=== PATIENT | female | born 1940 | race Caucasian/White ===

== ENCOUNTER 2017-04-03 12:03 | Outpatient (CLI) | payer OTHER | END 2017-04-03 14:40 | disposition home or self-care (01) | LOC: RAD 12:03 | DX: M25.561 Pain in right knee (principal); M25.562 Pain in left knee ==

== ENCOUNTER → 2017-04-12 08:34 | Outpatient (CLI) | payer OTHER | END | disposition home or self-care (01) | LOC: LAB 08:34 | DX: D69.6 Thrombocytopenia, unspecified (principal); M32.8 Other forms of systemic lupus erythematosus; D59.1 Other autoimmune hemolytic anemias; D89.1 Cryoglobulinemia ==

== ENCOUNTER → 2017-04-15 07:32 | Outpatient (CLI) | payer OTHER | END | disposition home or self-care (01) | LOC: LAB 07:32 | DX: D69.6 Thrombocytopenia, unspecified (principal); M32.8 Other forms of systemic lupus erythematosus; D59.1 Other autoimmune hemolytic anemias; D89.1 Cryoglobulinemia; M05.879 Other rheumatoid arthritis with rheumatoid factor of unspecified ankle and foot ==

== ENCOUNTER → 2017-08-02 07:41 | Outpatient (CLI) | payer OTHER | END | disposition home or self-care (01) | LOC: LAB 07:41 | DX: D53.8 Other specified nutritional anemias (principal); I11.0 Hypertensive heart disease with heart failure; N39.0 Urinary tract infection, site not specified; E78.2 Mixed hyperlipidemia; E04.0 Nontoxic diffuse goiter; D20.0 Benign neoplasm of soft tissue of retroperitoneum; E83.52 Hypercalcemia ==

== ENCOUNTER → 2017-08-29 12:05 | Outpatient (CLI) | payer OTHER | END | disposition home or self-care (01) | LOC: LAB 12:05 | DX: N39.0 Urinary tract infection, site not specified (principal); R82.79 Other abnormal findings on microbiological examination of urine ==

== ENCOUNTER 2017-08-29 12:51 | Outpatient (CLI) | payer OTHER | END 2017-08-29 13:21 | disposition home or self-care (01) | LOC: MAMO-SONO 12:51 | DX: Z12.31 Encounter for screening mammogram for malignant neoplasm of breast (principal); Z87.898 Personal history of other specified conditions; N60.11 Diffuse cystic mastopathy of right breast; N60.12 Diffuse cystic mastopathy of left breast ==

== ENCOUNTER 2018-01-31 08:18 | Outpatient (CLI) | payer OTHER | END 2018-01-31 08:21 | disposition home or self-care (01) | LOC: LAB 08:18 | DX: I11.0 Hypertensive heart disease with heart failure (principal); N39.0 Urinary tract infection, site not specified; E04.0 Nontoxic diffuse goiter; E11.9 Type 2 diabetes mellitus without complications; E78.2 Mixed hyperlipidemia; R00.2 Palpitations; D53.8 Other specified nutritional anemias ==

== ENCOUNTER 2018-07-04 07:49 | Outpatient (CLI) | payer OTHER | END 2018-07-04 08:49 | disposition home or self-care (01) | LOC: LAB 07:49 | DX: I11.0 Hypertensive heart disease with heart failure (principal); D53.9 Nutritional anemia, unspecified; N39.0 Urinary tract infection, site not specified; E11.9 Type 2 diabetes mellitus without complications; E78.2 Mixed hyperlipidemia ==

== ENCOUNTER → 2018-07-29 12:06 | Outpatient (CLI) | payer OTHER | END | disposition home or self-care (01) | LOC: LAB 12:06 | DX: N39.0 Urinary tract infection, site not specified (principal) ==

== ENCOUNTER → 2018-07-29 | Outpatient (CLI) | payer OTHER | END | disposition home or self-care (01) | LOC: MAMO-SONO 11:15 → SONOGRAMA 13:01 | DX: D17.22 Benign lipomatous neoplasm of skin and subcutaneous tissue of left arm (principal) ==

== ENCOUNTER 2019-01-27 07:13 | Outpatient (CLI) | payer OTHER | END 2019-01-27 11:04 | disposition home or self-care (01) | LOC: LAB 07:13 | DX: I11.0 Hypertensive heart disease with heart failure (principal); D53.8 Other specified nutritional anemias; N39.0 Urinary tract infection, site not specified; E78.2 Mixed hyperlipidemia; N36.0 Urethral fistula; R00.2 Palpitations; I11.9 Hypertensive heart disease without heart failure; E11.9 Type 2 diabetes mellitus without complications ==

== ENCOUNTER 2019-04-10 09:01 | Outpatient (CLI) | payer OTHER | END 2019-04-10 09:05 | disposition home or self-care (01) | LOC: LAB 09:01 | DX: D69.49 Other primary thrombocytopenia (principal); M32.8 Other forms of systemic lupus erythematosus; M05.80 Other rheumatoid arthritis with rheumatoid factor of unspecified site ==

== ENCOUNTER 2019-05-11 15:01 | Outpatient (CLI) | payer OTHER | END 2019-05-11 15:25 | disposition home or self-care (01) | LOC: NUCLEAR 15:01 | DX: M81.0 Age-related osteoporosis without current pathological fracture (principal) ==

== ENCOUNTER 2019-05-13 07:41 | Outpatient (CLI) | payer OTHER | END 2019-05-13 08:00 | disposition home or self-care (01) | LOC: LAB 07:41 | DX: M05.89 Other rheumatoid arthritis with rheumatoid factor of multiple sites (principal); M32.0 Drug-induced systemic lupus erythematosus; R76.0 Raised antibody titer; D69.49 Other primary thrombocytopenia; D55.8 Other anemias due to enzyme disorders ==

== ENCOUNTER → 2019-10-16 09:27 | Outpatient (CLI) | payer OTHER | END | disposition home or self-care (01) | LOC: LAB 09:27 | PROVIDERS: ATTEND Internal Medicine Endocrinology, Diabetes & Metabolism | DX: I10 Essential (primary) hypertension (principal); D53.8 Other specified nutritional anemias; E03.8 Other specified hypothyroidism; E78.2 Mixed hyperlipidemia; E11.9 Type 2 diabetes mellitus without complications; N39.0 Urinary tract infection, site not specified; E55.9 Vitamin D deficiency, unspecified ==

== ENCOUNTER → 2020-04-20 07:20 | Outpatient (CLI) | payer OTHER | END | disposition home or self-care (01) | LOC: LAB 07:20 | PROVIDERS: ATTEND Internal Medicine Endocrinology, Diabetes & Metabolism | DX: D53.8 Other specified nutritional anemias (principal); I11.0 Hypertensive heart disease with heart failure; E78.2 Mixed hyperlipidemia; E04.8 Other specified nontoxic goiter; E11.9 Type 2 diabetes mellitus without complications; E53.1 Pyridoxine deficiency ==

== ENCOUNTER 2020-06-01 09:32 | Outpatient (CLI) | payer OTHER | END 2020-06-01 13:43 | disposition home or self-care (01) | LOC: LAB 09:32 | DX: Z01.818 Encounter for other preprocedural examination (principal) ==

== ENCOUNTER 2021-07-26 12:34 | Outpatient (CLI) | payer OTHER | END 2021-07-26 12:43 | disposition home or self-care (01) | LOC: NUCLEAR 12:34 | PROVIDERS: ATTEND Internal Medicine Cardiovascular Disease | DX: M81.0 Age-related osteoporosis without current pathological fracture (principal); E55.9 Vitamin D deficiency, unspecified ==

== ENCOUNTER 2021-11-27 09:55 | Outpatient (CLI) | payer OTHER | END 2021-11-27 10:12 | disposition home or self-care (01) | LOC: SONOGRAMA 09:55 | PROVIDERS: ATTEND Family Medicine | DX: M25.552 Pain in left hip (principal) ==

== ENCOUNTER 2022-05-15 10:30 | Outpatient (CLI) | payer OTHER | END 2022-05-15 11:11 | disposition home or self-care (01) | LOC: RAD 10:30 | PROVIDERS: ATTEND Internal Medicine Cardiovascular Disease | DX: M12.9 Arthropathy, unspecified (principal) ==

== ENCOUNTER 2022-12-18 12:45 | Outpatient (CLI) | payer OTHER | END 2022-12-18 12:52 | disposition home or self-care (01) | LOC: RAD 12:45 | PROVIDERS: ATTEND Internal Medicine Rheumatology | DX: M15.8 Other polyosteoarthritis (principal) ==

== ENCOUNTER 2023-09-18 12:45 | Outpatient (CLI) | payer OTHER | END 2023-09-18 12:46 | disposition home or self-care (01) | LOC: NUCLEAR 12:45 | PROVIDERS: ATTEND Internal Medicine Rheumatology | DX: M81.0 Age-related osteoporosis without current pathological fracture (principal) ==

== ENCOUNTER 2024-03-30 11:59 | Outpatient (CLI) | payer OTHER | END 2024-03-30 12:05 | disposition home or self-care (01) | LOC: SONOGRAMA 11:59 | PROVIDERS: ATTEND Family Medicine | DX: M70.71 Other bursitis of hip, right hip (principal) ==

== ENCOUNTER 2024-04-20 11:51 | Outpatient (CLI) | payer OTHER | END 2024-04-20 11:53 | disposition home or self-care (01) | LOC: RAD 11:51 | PROVIDERS: ATTEND Internal Medicine Rheumatology | DX: M47.814 Spondylosis without myelopathy or radiculopathy, thoracic region (principal); M47.817 Spondylosis without myelopathy or radiculopathy, lumbosacral region; M41.9 Scoliosis, unspecified ==

== ENCOUNTER 2024-11-18 10:38 | Outpatient (CLI) | payer OTHER | END 2024-11-18 10:45 | disposition home or self-care (01) | LOC: RAD 10:38 | PROVIDERS: ATTEND Family Medicine | DX: M25.561 Pain in right knee (principal) ==

== ENCOUNTER 2025-02-10 12:07 | Outpatient (CLI) | payer OTHER | END 2025-02-10 12:22 | disposition home or self-care (01) | LOC: MRI 12:07 | PROVIDERS: ATTEND Family Medicine | DX: M25.561 Pain in right knee (principal) | CPT/HCPCS: 73721 ==